=== PATIENT | female | born 1930 | race Caucasian/White ===

== ENCOUNTER 2019-01-06 09:13 | Inpatient (IN) ==
[2019-01-06] MEDS ORDERED: SODIUM CHLORIDE 0.9% 250 ML IV PRN ×2 (09:24→17:58)
[2019-01-06] MEDS ORDERED: PANTOPRAZOLE BOLUS/DRIP 1 EA IV STA (09:24)
[2019-01-06] MEDS ORDERED: PANTOprazole 80 MG in DEXTROSE 5% 100 ML IV ONE (09:24)
[2019-01-06] MEDS ORDERED: SODIUM CHLORIDE 0.9% 1000ML 1,000 ML IV SCH (09:30)
[2019-01-06 09:40] LABS: Basophils # (auto) 0.02 K/uL (0-0.2); Basophils % (auto) 0.4 %; Eosinophils # (auto) 0.09 K/uL (0-0.5); Eosinophils % (auto) 1.8 %; Hematocrit (blood only) 26.7 % (37-47); Hemoglobin 8.8 g/dL (12.0-16.0); Immature Granulocytes # (auto) 0.01 K/uL (0.00-0.02); Immature Granulocytes % (auto) 0.2 %; Lymphocytes # (auto) 1.48 K/uL (1.2-3.4); Lymphocytes % (auto) 29.4 %; Mean Corpuscular Volume 91.4 fL (80-100); Mean Platelet Volume 8.9 fL (7.4-10.4); Monocytes # (auto) 0.27 K/uL (0.11-0.59); Monocytes % (auto) 5.4 %; Neutrophils # (auto) 3.16 K/uL (1.4-6.5); Neutrophils % (auto) 62.8 %; Platelet Count 187 K/uL (130-400); RDW Coefficient of Variation 18.5 % (11.5-14.5); RDW Standard Deviation 62.6 fL (36.4-46.3); Red Blood Count 2.92 M/uL (4.2-5.4); White Blood Count 5.03 K/uL (4.8-10.8)
[2019-01-06 09:50] LABS: INR 1.1 (0.9-1.1); Partial Thromboplastin Ratio 0.9; Partial Thromboplastin Time 24.5 Seconds (21.0-31.0); Prothrombin Time 11.1 Seconds (9.0-12.0)
[2019-01-06 09:56] LABS: Alanine Aminotransferase 19 U/L (12-78); Albumin Level 2.9 gm/dl (3.4-5.0); Aspartate Aminotransferase 24 U/L (15-37); BUN Creatinine Ratio 29.9 (10-20); Blood Urea Nitrogen 43 mg/dl (7-18); Calcium 8.4 mg/dl (8.5-10.1); Carbon Dioxide 26 mmol/L (21-32); Chloride 106 mmol/L (98-107); Est GFR (African American) 37.8; Est GFR (Non-African American) 32.6; Glucose 100 mg/dl (70-99); Sodium 138 mmol/L (136-145)
[2019-01-06 09:59] LABS: Albumin Globulin Ratio 0.9 (0.9-2); Alkaline Phosphatase 61 U/L (45-117); Globulin 3.2 gm/dl (2.5-4.0); Total Protein 6.1 gm/dl (6.4-8.2)
[2019-01-06 10:04] LABS: Ovalocytes 1+
[2019-01-06] MEDS: PANTOprazole 40 MG in DEXTROSE 5% 100 ML IV SCH ×3 (10:04→19:39)
--- NOTE | 2019-01-06 11:46 | History & Physical Report ---
Date of Service January 06, 2019 Assessment & Plan (1) GI bleed: (2) Symptomatic anemia: -admit to Med Surg with tele -patient presenting from [facility] after one week ago developing a small amount of dark red blood with bowel movements to having jaxon bight red bleeding per rectum today -patient anticoagulated on Eliquis for history of atrial fibrillation, last dose this AM -in the ED, hgb 8.8 (down from 12.1 on 12/26), BPs somewhat low with systolics in the 90s -unknown history of prior EGD or colonoscopy -started on PPI drip in the ED, will continue with -serial H/H, transfuse PRN -NPO -IVF -GI consult, case discussed with Marisela Bolanos PA-C (3) AVERY (acute kidney injury): -creat 1.4 (baseline ~ 1.0) -likely prerenal due to hypovolemia from anemia -IVF, hold ACEi -follow renal functions, avoid nephrotoxic agents when able (4) AICD (automatic cardioverter/defibrillator) present: (5) Monomorphic ventricular tachycardia: (6) Nonischemic cardiomyopathy: -stable -echo 2015 - EF 50%, severely dilated left atrium, moderately dilated right atrium, severe MR, mild AR, moderate TR -holding Lasix due to AVERY -monitor volume status closely (7) Atrial fibrillation: -rhythm controlled on Tikosyn, will continue -rate controlled on metoprolol, will hold for now due to borderline hypotension -anticoagulated on Eliquis, holding for now due to GI bleed (8) HTN (hypertension): -holding enalapril and metoprolol for now due to AVERY/borderline hypotension (9) DVT prophylaxis: -SCDs for now due to GI bleed History of Present Illness Chief Complaint: Rectal bleeding Primary Care Provider: Dr. Musa 88-year-old female who presents to the ED from [facility] for evaluation of rectal bleeding. History is somewhat limited from the patient secondary to her underlying dementia. Some history was obtained from staff at [facility]. Staff reports that patient developed a small amount of blood with bowel mov ements last week. She had an appointment with her cafe helper who ordered stool for Hemoccult and CBC. Staff reports that the bleeding has been progressively getting worse. This morning, patient was complaining of dizziness and generalized weakness. She had a bowel movement of bright red blood. Patient was then sent to the ED for further evaluation. Patient denies abdominal pain, nausea, vomiting. Reports she ate very little of her breakfast this morning (this was also confirmed with staff at [facility]). No reports of chest pain or shortness of breath. No syncopal events. Patient was seen in the ED on 12/13 and diagnosed with pneumonia. She was placed on Augmentin which she has since completed. She appears to have recovered from this without incident. No reports of other recent illnesses, fevers, chills. Patient is unsure if she has had a colonoscopy or EGD in the past and is receiving most of her medical care in [place] and [place]. In the ED, patient's hemoglobin was found to be 8.8 (down from 12.1 on 12/26), creatinine 1.4 (baseline appears to be around 1.0). Systolic blood pressures are somewhat low running in the 90s. Patient was given IVF and started on a Protonix drip. Allergies Allergy/AdvReac Type Severity Reaction Status Date / Time No Known Allergies Allergy Unverified 01/06/19 09:59 Home Medications Home Medications Medication Instructions Recorded Confirmed Type acetaminophen [Tylenol] 650 mg PO Q4H PRN 12/13/18 01/06/19 History apixaban [Eliquis] 2.5 mg PO BID 12/13/18 01/06/19 History aspirin 81 mg PO QAM 12/13/18 01/06/19 History dofetilide 125 mcg PO Q12H 12/13/18 01/06/19 History enalapril maleate 2.5 mg PO QAM 12/13/18 01/06/19 History furosemide 40 mg PO QAM 12/13/18 01/06/19 History pantoprazole [Protonix] 40 mg PO QAM 12/13/18 01/06/19 History potassium chloride 10 meq PO BID 12/13/18 01/06/19 History vitamin B comp and C no.3 1 cap PO QAM 12/13/18 01/06/19 History Saccharomyces boulardii [Florastor] 250 mg PO BID 01/06/19 01/06/19 History metoprolol tartrate 25 mg PO BID 01/06/19 01/06/19 History Past Med/Surg History Medical History Monomorphic ventricular tachycardia (Chronic) GERD (gastroesophageal reflux disease) (Chronic) Nonischemic cardiomyopathy (Chronic) Atrial fibrillation (Chronic) Surgical History AICD (automatic cardioverter/defibrillator) present (Chronic) Family History Other Family history non-contributory Social History Preferred Language: Montserratian Communication Ability: Effective Manager Culinary Required: No Beliefs That Will Affect Care: Quaker Current Living Situation: Retirement Other Information That Helps Us Care for You: No Feels Safe at Home: Yes Safety Concerns: Feels Safe At This Time Smoking Status: Never smoker Hx Alcohol Use: No Hx Substance Use: No Review of Systems 10 points reviewed with patient however felt to be limited secondary to underlying dementia. Physical Exam Vital Signs (Past 24 Hours): Last Vital Signs Temp 36.6 C 01/06/19 09:12 Pulse 94 H 01/06/19 10:26 Resp 28 H 01/06/19 10:26 BP 91/59 L 01/06/19 10:26 Pulse Ox 100 01/06/19 10:26 Constitutional: + thin; no acute distress Vitals as above Eyes: PERRL, conjunctivae normal, anicteric sclerae ENMT: external ear and nose normal, oropharynx normal Respiratory: normal respiratory effort, lungs clear to auscultation Cardiovascular: Rate/Rhythm: + tachycardic; + abnormal rhythm (Irregularly irregular) Vessels: normal peripheral pulses Extremities: + edema (Trace, BLE) Gastrointestinal (Abdomen): normal bowel sounds, soft, nontender, no hepatosplenomegaly Musculoskeletal: no cyanosis or clubbing, extremities motor strength 5/5 Skin: no rashes, warm and dry Neurologic: PERRL, EOMI, accommodation nl, no face palsy, no dysarthria Psychiatric: A+Ox3, euthymic affect (Forgetful) Insight: + limited insight Results & Data Laboratory Results Laboratory Last Values WBC 5.03 K/uL (4.8-10.8) 01/06/19 09:29 RBC 2.92 M/uL (4.2-5.4) L 01/06/19 09: Hgb 8.8 g/dL (12.0-16.0) L 01/06/19 09: Hct 26.7 % (37-47) L 01/06/19 09: MCV 91.4 fL (80-100) 01/06/19 09: MCH 30.1 pg (25-34) 01/06/19: MCHC 33.0 g/dL (32-36) 01/06/19 09: RDW Std Deviation 62.6 fL (36.4-46.3) H 01/06/19: RDW Coeff of Elieser 18.5 % (11.5-14.5) H 01/06/19: Plt Count 187 K/uL (130-400) 01/06/19: MPV 8.9 fL (7.4-10.4) 01/06/19 09: Immature Gran % (Auto) 0.2 % 01/06/19 09: Neut % (Auto) 62.8 % 01/06/19 09: Lymph % (Auto) 29.4 % 01/06/19 09: [place] % (Auto) 5.4 % 01/06/19 09: Eos % (Auto) 1.8 % 01/06/19 09: Baso % (Auto) 0.4 % 01/06/19 09: Immature Gran # (Auto) 0.01 K/uL (0.00-0.02) 01/06/19: Neut # (Auto) 3.16 K/uL (1.4-6.5) 01/06/19 09: Lymph # (Auto) 1.48 K/uL (1.2-3.4) 01/06/19 09: [place] # (Auto) 0.27 K/uL (0.11-0.59) 01/06/19 09: Eos # (Auto) 0.09 K/uL (0-0.5) 01/06/19 09: Baso # (Auto) 0.02 K/uL (0-0.2) 01/06/19 09: Ovalocytes 1+ 01/06/19 09:29 PT 11.1 Seconds (9.0-12.0) 01/06/19 09:29 INR 1.1 (0.9-1.1) 01/06/19 09:29 APTT 24.5 Seconds (21.0-31.0) 01/06/19 09:29 PTT Ratio 0.9 01/06/19 09:29 Sodium 138 mmol/L (136-145) 01/06/19 09:29 Potassium 4.0 mmol/L (3.5-5.1) 01/06/19 09:29 Chloride 106 mmol/L (98-107) 01/06/19 09:29 Carbon Dioxide 26 mmol/L (21-32) 01/06/19 09:29 Anion Gap 6.0 (3-11) 01/06/19 09:29 BUN 43 mg/dl (7-18) H 01/06/19 09:29 Creatinine 1.43 mg/dl (0.6-1.2) H 01/06/19 09:29 Est Cr Clr Drug Dosing Not Reportable 01/06/19 09:29 Est GFR ( Amer) 37.8 01/06/19 09:29 Est GFR (Non-Af Amer) 32.6 01/06/19 09:29 BUN/Creatinine Ratio 29.9 (10-20) H 01/06/19 09:29 Glucose 100 mg/dl (70-99) H 01/06/19 09:29 Calcium 8.4 mg/dl (8.5-10.1) L 01/06/19 09:29 Total Bilirubin 1.0 mg/dl (0.2-1) 01/06/19 09:29 AST 24 U/L (15-37) 01/06/19 09:29 ALT 19 U/L (12-78) 01/06/19 09:29 Alkaline Phosphatase 61 U/L (45-117) 01/06/19 09:29 Total Protein 6.1 gm/dl (6.4-8.2) L 01/06/19 09:29 Albumin 2.9 gm/dl (3.4-5.0) L 01/06/19 09:29 Globulin 3.2 gm/dl (2.5-4.0) 01/06/19 09:29 Albumin/Globulin Ratio 0.9 (0.9-2) 01/06/19 09:29 POC Stool Occult Blood Positive (Negative) H 01/06/19 Unknown Blood Type O Positive 01/06/19 09:44 Antibody Screen NEGATIVE 01/06/19 09:44 Crossmatch See Detail 01/06/19 09:44 Code Status & VTE Plan Code Status Patient is a full code as per my discussion with staff at [facility]. Supervising Physician Co-Signing Physician Notes I saw this patient with the Nurse Practitioner, I participated in the history, physical, review of systems, and physical exam. I reviewed the medications with the patient and the Nurse Practioner and helped reconcile the medications. I helped take a detailed family and social history as well. I formulated the assessment and plan personally with the Nurse Practitioner and went over it with the patient. ROS-No Headache, No Visual Changes, No Nausea, No Vomiting, No Fever, No Chills, No Neck Pain or Stiffness, No Chest Pain, No Palpitations, No SOB, No PICHARDO, No Cough, No Sputum, No Wheezing, No Abdominal Pain, No Diarrhea, No Hematemesis, No Hemoptysis, No Unexpected Weight Loss, No Flank pain, No Melena, +Hematochezia, No Frequency, No Urgency, No Burning, No Hematuria, No Rashes, No Diaphoresis. Appetite is Normal Physical Exam Gen-AAO x 3, NAD, Afebrile, Cachectic, Pleasant Head-NCAT, EOMI, PERRLA, Anicteric Sclera, No Posterior Pharyngeal Erythema Neck-Supple, No JVD, No Thyromegaly, No Masses, No LAD, No Bruits Lungs-Clear to Auscultation Bilaterally, No Rales, No Rhonchi, No Wheezing, No Crepitus Chest-Irregular, Tachy, No S4, +S1, +S2, No S3, No Murmurs, No Rubs, No Gallops Abdomen-Soft, Bowel Sounds Present, Non Tender, Non Distended, No Hepatomegaly, No Splenomegaly, No Palpable Masses, No Rebound, No Rigidity, No Guarding Musculoskeletal-Full Range of Motion Bilaterally, No CVAT Extremities-No Cyanosis, No Clubbing, Trace Edema Nuero-Cranial Nerves II-XII grossly intact, Motor WNL, DTRs WNL, Strength WNL, Non Focal Psych-Normal Mood (1) GI bleed GI bleed type/associated pathology: unspecified gastrointestinal hemorrhage type Qualified Code(s): K92.2 - Gastrointestinal hemorrhage, unspecified
--- NOTE | 2019-01-06 13:17 | Gastrointestinal Consultation ---
Date of Consultation January 06, 2019 Assessment & Plan (1) GI bleed: Diverticular bleed would be most likely given there is no abdominal pain, however colon cancer, colon polyps and (less likely) ischemia would be in the differential as well. Patient's last colonoscopy was many years ago. She has had a drop in hgb, but has not had a BM since this morning, so things appear to be slowing down. Would follow the blood counts, and transfuse if Hgb falls below 8. Hold anticoagulation. BUN is elevated, but there is some acute renal failure, so difficult to assess for an upper GI bleed, however patient has no significant upper GI symptoms. Would suggest stopping the PPI drip and changing to IVPB q12hrs. If hgb continues to drop, would pursue an inpatient colonoscopy. Otherwise, would manage conservatively during admission and plan for OP colonoscopy. Present on Admission?: Yes Supervising Physician Co-Signing Physician Notes I have personally seen and examined the patient with Marisela Bolanos PA-C. Her note reflects my exam and findings. I agree with her impression and plan. Pt with mild anemia and self limited small rectal bleed possibly from outlet bleeding. No blood on most recent BM this afternoon. No indication for endoscopy at this point. Cont. to follow H/H. Ladarius Garcia M.D. History of Present Illness History of Present Illness 88 year old female with a hx of afib/on Eliquis, HTN, Vtach, s/p ACID, admitted from a local nursing facility with rectal bleeding. By report she has had an approximate 1 week+ hx of a small amount of maroon blood in the stool, progressing to jaxon red blood today. She has a hx of dementia so it is somewhat difficult to obtain an accurate history, but her daughter is at bedside and she helps with the history. Patient reports BMs about 3-4 times daily and denies any abdominal pain or upper GI symptoms. She does take pantoprazole once daily at home. Last colonoscopy was a "long time ago," per her daughter, and it is felt that it was normal. Family hx of colon cancer in her mother, who was in her 90s at the time of diagnosis. Last BM was this morning prior to coming to the ED. Patient is mildly hypotensive, with a bp of 90/55. Pulse is normal at 68. She is afebrile and in no acute distress. Blood work shows a Hgb of 8.8 today. It was 9.6 on 12/31 and 12.1 on 12/26/18. BUN is 43 with a creat of 1.43. Allergies Allergy/AdvReac Type Severity Reaction Status Date / Time No Known Allergies Allergy Unverified 01/06/19 09:59 Home Medications Home Medications Medication Instructions Recorded Confirmed Type acetaminophen [Tylenol] 650 mg PO Q4H PRN 12/13/18 01/06/19 History apixaban [Eliquis] 2.5 mg PO BID 12/13/18 01/06/19 History aspirin 81 mg PO QAM 12/13/18 01/06/19 History dofetilide 125 mcg PO Q12H 12/13/18 01/06/19 History enalapril maleate 2.5 mg PO QAM 12/13/18 01/06/19 History furosemide 40 mg PO QAM 12/13/18 01/06/19 History pantoprazole [Protonix] 40 mg PO QAM 12/13/18 01/06/19 History potassium chloride 10 meq PO BID 12/13/18 01/06/19 History vitamin B comp and C no.3 1 cap PO QAM 12/13/18 01/06/19 History Saccharomyces boulardii [Florastor] 250 mg PO BID 01/06/19 01/06/19 History metoprolol tartrate 25 mg PO BID 01/06/19 01/06/19 History Patient History Medical History Monomorphic ventricular tachycardia (Chronic) GERD (gastroesophageal reflux disease) (Chronic) Nonischemic cardiomyopathy (Chronic) Atrial fibrillation (Chronic) Surgical History AICD (automatic cardioverter/defibrillator) present (Chronic) Family History Other Family history non-contributory Social History Preferred Language: Vincentian Communication Ability: Effective Design Chief Required: No Beliefs That Will Affect Care: Islam Current Living Situation: Custodial Other Information That Helps Us Care for You: No Feels Safe at Home: Yes Safety Concerns: Feels Safe At This Time Smoking Status: Never smoker Hx Alcohol Use: No Hx Substance Use: No Review of Systems Constitutional: no fever, no chills, no fatigue and no weight loss Eyes: no eye pain and no worsening vision Ear, Nose, Mouth, Throat: + hearing loss; no ear pain, no nasal congestion and no sore throat Respiratory: no cough, no chest congestion and no wheezing Cardiovascular: no chest pain and no dyspnea Gastrointestinal: as per Subjective / HPI Genitourinary (Female): no dysuria and no urinary incontinence Musculoskeletal: no joint pain Integumentary: no rash and no pruritus Neurologic: no tingling, no numbness and no dizziness Psychiatric: no suicidal ideation and no confusion Endocrine: no cold intolerance and no heat intolerance Hematologic / Lymphatic: no easy bleeding and no easy bruising Allergy / Immunological: no problem reported Physical Exam Vital Signs (Past 24 Hours): Last Vital Signs Temp 36.6 C 01/06/19 09:12 Pulse 94 H 01/06/19 10:26 Resp 16 01/06/19 12:12 BP 95/51 L 01/06/19 12:12 Pulse Ox 100 01/06/19 12:12 Constitutional: no acute distress Eyes: + anicteric sclerae ENMT: external ear and nose normal, oropharynx normal Neck: normal visual inspection Respiratory: normal respiratory effort, lungs clear to auscultation Cardiovascular: Heart Sounds: no murmur irregular Gastrointestinal (Abdomen): normal bowel sounds, soft, nontender, no hepatosplenomegaly Musculoskeletal: Head/Neck/Chest: normocephalic and head atraumatic Skin: no rashes, warm and dry Neurologic: moves all extremities; no focal motor deficits Psychiatric: Orientation: alert and oriented x 3 Results & Data Laboratory Results Laboratory Results - last 24 hr 01/06/19 01/06/19 01/06/19 09:29 09:29 09:29 WBC 5.03 RBC 2.92 L Hgb 8.8 L Hct 26.7 L MCV 91.4 MCH 30.1 MCHC 33.0 RDW Std Deviation 62.6 H RDW Coeff of Elieser 18.5 H Plt Count 187 MPV 8.9 Immature Gran % (Auto) 0.2 Neut % (Auto) 62.8 Lymph % (Auto) 29.4 [place] % (Auto) 5.4 Eos % (Auto) 1.8 Baso % (Auto) 0.4 Immature Gran # (Auto) 0.01 Neut # (Auto) 3.16 Lymph # (Auto) 1.48 [place] # (Auto) 0.27 Eos # (Auto) 0.09 Baso # (Auto) 0.02 Ovalocytes 1+ PT 11.1 INR 1.1 APTT 24.5 PTT Ratio 0.9 Sodium 138 Potassium 4.0 Chloride 106 Carbon Dioxide 26 Anion Gap 6.0 BUN 43 H Creatinine 1.43 H Est Cr Clr Drug Dosing Not Reportable Est GFR ( Amer) 37.8 Est GFR (Non-Af Amer) 32.6 BUN/Creatinine Ratio 29.9 H Glucose 100 H Calcium 8.4 L Total Bilirubin 1.0 AST 24 ALT 19 Alkaline Phosphatase 61 Total Protein 6.1 L Albumin 2.9 L Globulin 3.2 Albumin/Globulin Ratio 0.9 POC Stool Occult Blood Blood Type Antibody Screen Crossmatch 01/06/19 01/06/19 09:44 Unknown WBC RBC Hgb Hct MCV MCH MCHC RDW Std Deviation RDW Coeff of Elieser Plt Count MPV Immature Gran % (Auto) Neut % (Auto) Lymph % (Auto) [place] % (Auto) Eos % (Auto) Baso % (Auto) Immature Gran # (Auto) Neut # (Auto) Lymph # (Auto) [place] # (Auto) Eos # (Auto) Baso # (Auto) Ovalocytes PT INR APTT PTT Ratio Sodium Potassium Chloride Carbon Dioxide Anion Gap BUN Creatinine Est Cr Clr Drug Dosing Est GFR ( Amer) Est GFR (Non-Af Amer) BUN/Creatinine Ratio Glucose Calcium Total Bilirubin AST ALT Alkaline Phosphatase Total Protein Albumin Globulin Albumin/Globulin Ratio POC Stool Occult Blood Positive H Blood Type O Positive Antibody Screen NEGATIVE Crossmatch See Detail (1) GI bleed GI bleed type/associated pathology: unspecified gastrointestinal hemorrhage type Qualified Code(s): K92.2 - Gastrointestinal hemorrhage, unspecified
[2019-01-06] MEDS ORDERED: ACETAMINOPHEN 325 MG TAB PO PRN (13:22)
[2019-01-06] MEDS: SODIUM CHLORIDE 0.9% 1000ML 1,000 ML IV SCH (15:05)
--- NOTE | 2019-01-06 15:46 | Emergency Department Note ---
Entered by Travis Reeves acting as a scribe for History of Present Illness General Chief complaint: Rectal Bleed Stated complaint: sob/rectal bleed Source: patient Mode of arrival: EMS History of Present Illness Provider complaint: hematochezia Onset (ago): day(s) (few days) Location: head Pain Consistency: + other (episode) Quality: + other (hematochezia) Associated symptoms: + denies other symptoms (abdominal pain) and + other (lightheaded); no chest pain and no nausea/vomiting The patient is an 88 year old female who presents to the Emergency Room with complaints of hematochezia that started a few days ago. The patient reports that her stool has been a "maroon" color. She also states that she has been lightheaded for the past few days as well. She denies any chest pain, abdominal pain, nausea, or vomiting. She also denies being on any blood thinners. Patient has no other complaints at this time. Home Medications Home Medications Medication Instructions Recorded Confirmed Type acetaminophen [Tylenol] 650 mg PO Q4H PRN 12/13/18 01/06/19 History apixaban [Eliquis] 2.5 mg PO BID 12/13/18 01/06/19 History aspirin 81 mg PO QAM 12/13/18 01/06/19 History dofetilide 125 mcg PO Q12H 12/13/18 01/06/19 History enalapril maleate 2.5 mg PO QAM 12/13/18 01/06/19 History furosemide 40 mg PO QAM 12/13/18 01/06/19 History pantoprazole [Protonix] 40 mg PO QAM 12/13/18 01/06/19 History potassium chloride 10 meq PO BID 12/13/18 01/06/19 History vitamin B comp and C no.3 1 cap PO QAM 12/13/18 01/06/19 History Saccharomyces boulardii [Florastor] 250 mg PO BID 01/06/19 01/06/19 History metoprolol tartrate 25 mg PO BID 01/06/19 01/06/19 History Allergies Allergy/AdvReac Type Severity Reaction Status Date / Time No Known Allergies Allergy Unverified 01/06/19 09:59 Past Med/Surg History Medical History Monomorphic ventricular tachycardia (Chronic) GERD (gastroesophageal reflux disease) (Chronic) Nonischemic cardiomyopathy (Chronic) Atrial fibrillation (Chronic) Surgical History AICD (automatic cardioverter/defibrillator) present (Chronic) Family History Other Family history non-contributory Social History Preferred Language: Irish Communication Ability: Effective Lease Analyst Required: No Beliefs That Will Affect Care: Zoroastrian Current Living Situation: Assisted Other Information That Helps Us Care for You: No Feels Safe at Home: Yes Safety Concerns: Feels Safe At This Time Smoking Status: Never smoker Hx Alcohol Use: No Hx Substance Use: No Review of Systems See HPI for pertinent positives & negatives. and A total of 10 systems reviewed and were otherwise negative Physical Exam Vital Signs Vital Signs - 24 hr 01/06/19 09:12 01/06/19 09:33 01/06/19 10:26 Temperature 36.6 C Temperature Source Oral Sepsis Recent Fever Within 48 Hours No Sepsis Action Taken by Nursing No Action Required Pulse Rate 84 Pulse Rate [Left Finger] 94 H Respiratory Rate 26 H 28 H Respiratory Effort / Characteristics Non-Labored Non-Labored Respiratory Depth Normal Normal Respiratory Pattern Blood Pressure 98/63 L Blood Pressure [Right Arm] 91/59 L Blood Pressure Mean 74 Blood Pressure Mean [Right Arm] 69 Blood Pressure Position [Right Arm] Pulse Oximetry 100 100 100 Oxygen Delivery Method Room Air Room Air Room Air 01/06/19 12:12 01/06/19 13:03 Temperature 36.6 C Temperature Source Oral Sepsis Recent Fever Within 48 Hours Sepsis Action Taken by Nursing Pulse Rate Pulse Rate [Left Finger] 68 Respiratory Rate 16 16 Respiratory Effort / Characteristics Non-Labored Non-Labored Spontaneous Respiratory Depth Normal Normal Respiratory Pattern Regular Blood Pressure Blood Pressure [Right Arm] 95/51 L 90/55 L Blood Pressure Mean Blood Pressure Mean [Right Arm] 65 66 Blood Pressure Position [Right Arm] Lying Pulse Oximetry 100 94 Oxygen Delivery Method Room Air Room Air GENERAL: Sitting up in bed, alert, disheveled, well nourished, no distress, non- toxic EYE EXAM: normal conjunctiva. PERRL and EOM's grossly intact. OROPHARYNX: no exudate, no erythema, lips, buccal mucosa, and tongue normal and mucous membranes are moist NECK: supple, no nuchal rigidity, no adenopathy, non-tender LUNGS: Clear to auscultation. Normal chest wall mechanics HEART: no murmurs, S1 normal and S2 normal ABDOMEN: abdomen soft, non-tender, normo-active bowel, sounds, no masses, no rebound or guarding. BACK: Back is symmetrical on inspection and there is no deformity, no midline tenderness, no CVA tenderness. RECTAL: Dried blood on rectum, heme positive. SKIN: no rashes and no bruising UPPER EXTREMITIES: upper extremities are grossly normal. LOWER EXTREMITIES: No pitting edema. NEURO EXAM: Normal sensorium, cranial nerves II-XII grossly intact, normal speech, no gross weakness of arms, no gross weakness of legs. Course ED COURSE: Vital signs were reviewed and showed the patient was hypotensive. The patients medical record was reviewed The above diagnostic studies were performed and reviewed. ED treatments and interventions as stated above. 0919: The patient was evaluated in room A2. A complete history and physical examination was performed. 1016: [facility] will evaluate the patient for further management. 1021: Upon reevaluation, the patient is resting comfortably. I discussed my findings with the patient and she understands and agrees with the treatment plan. Based on the patients age, coexisting illnesses, exam and lab findings the decision to treat as an inpatient was made. The patient remained stable while under my care. The patient will be evaluated for further management. Consultations [facility] Time: 10:16 Administered Medications Pantoprazole Sodium 40 mg/ (Dextrose) 100 mls @ 20 mls/hr IV Q5H RANDY Stop: 02/05/19 09:29 Last Admin: 01/06/19 15:04 Dose: 20 mls/hr Documented by: [id number] Infusion: 01/06/19 15:04 Dose: 20 mls/hr Documented by: [id number] Admin: 01/06/19 10:04 Dose: 20 mls/hr Documented by: [id number] Sodium Chloride (Nss 1000ml) 1,000 mls @ 80 mls/hr IV .[id number] RANDY Stop: 02/05/19 14:29 Last Admin: 01/06/19 15:05 Dose: 80 mls/hr Documented by: [id number] Discontinued Medications Pantoprazole Sodium (Protonix Bolus/Drip) 0 mls @ 1 mls/hr IV ONE STA Stop: 01/06/19 09:25 Last Admin: 01/06/19 10:05 Dose: Not Given Documented by: [id number] Pantoprazole Sodium 80 mg/ (Dextrose) 120 mls @ 400 mls/hr IV NOW ONE Stop: 01/06/19 09:41 Last Infusion: 01/06/19 10:07 Dose: 0 mls/hr Documented by: [id number] Admin: 01/06/19 09:49 Dose: 400 mls/hr Documented by: [id number] Sodium Chloride (Nss 1000ml) 1,000 mls @ 999 mls/hr IV .[id number] RANDY Stop: 01/06/19 10:30 Last Infusion: 01/06/19 11:36 Dose: 0 mls/hr Documented by: [id number] Admin: 01/06/19 09:49 Dose: 999 mls/hr Documented by: [id number] Medical Decision Making Differential Diagnosis Differential diagnosis: Etiologies such as diverticulosis, AVM, coagulopathy, colitis, inflammatory bowel disease, malignancy, Mariia-Winkler tear, esophagitis, peptic ulcer disease, variceal bleed, gastritis, epistaxis, fissure, hemorrhoids, aswell as others were entertained. Medical Records Attestation: I reviewed the patient's medical records. Home Medications Current Medication List: was personally reviewed by me Laboratory Data Attestation: I reviewed the patient's lab results. Result diagrams: 01/06/19 09:29 01/06/19 09:29 Lab Results 01/06/19 01/06/19 01/06/19 Range/Units 09:29 09:29 09:29 WBC 5.03 (4.8-10.8) K/uL RBC 2.92 L (4.2-5.4) M/uL Hgb 8.8 L (12.0-16.0) g/dL Hct 26.7 L (37-47) % MCV 91.4 (80-100) fL MCH 30.1 (25-34) pg MCHC 33.0 (32-36) g/dL RDW Std Deviation 62.6 H (36.4-46.3) fL RDW Coeff of Elieser 18.5 H (11.5-14.5) % Plt Count 187 (130-400) K/uL MPV 8.9 (7.4-10.4) fL Immature Gran % (Auto) 0.2 % Neut % (Auto) 62.8 % Lymph % (Auto) 29.4 % [place] % (Auto) 5.4 % Eos % (Auto) 1.8 % Baso % (Auto) 0.4 % Immature Gran # (Auto) 0.01 (0.00-0.02) K/uL Neut # (Auto) 3.16 (1.4-6.5) K/uL Lymph # (Auto) 1.48 (1.2-3.4) K/uL [place] # (Auto) 0.27 (0.11-0.59) K/uL Eos # (Auto) 0.09 (0-0.5) K/uL Baso # (Auto) 0.02 (0-0.2) K/uL Ovalocytes 1+ PT 11.1 (9.0-12.0) Seconds INR 1.1 (0.9-1.1) APTT 24.5 (21.0-31.0) Seconds PTT Ratio 0.9 Sodium 138 (136-145) mmol/L Potassium 4.0 (3.5-5.1) mmol/L Chloride 106 (98-107) mmol/L Carbon Dioxide 26 (21-32) mmol/L Anion Gap 6.0 (3-11) BUN 43 H (7-18) mg/dl Creatinine 1.43 H (0.6-1.2) mg/dl Est Cr Clr Drug Dosing Not Reportable Est GFR ( Amer) 37.8 Est GFR (Non-Af Amer) 32.6 BUN/Creatinine Ratio 29.9 H (10-20) Glucose 100 H (70-99) mg/dl Calcium 8.4 L (8.5-10.1) mg/dl Total Bilirubin 1.0 (0.2-1) mg/dl AST 24 (15-37) U/L ALT 19 (12-78) U/L Alkaline Phosphatase 61 (45-117) U/L Total Protein 6.1 L (6.4-8.2) gm/dl Albumin 2.9 L (3.4-5.0) gm/dl Globulin 3.2 (2.5-4.0) gm/dl Albumin/Globulin Ratio 0.9 (0.9-2) POC Stool Occult Blood (Negative) Blood Type Antibody Screen Crossmatch 01/06/19 01/06/19 Range/Units 09:44 Unknown WBC (4.8-10.8) K/uL RBC (4.2-5.4) M/uL Hgb (12.0-16.0) g/dL Hct (37-47) % MCV (80-100) fL MCH (25-34) pg MCHC (32-36) g/dL RDW Std Deviation (36.4-46.3) fL RDW Coeff of Elieser (11.5-14.5) % Plt Count (130-400) K/uL MPV (7.4-10.4) fL Immature Gran % (Auto) % Neut % (Auto) % Lymph % (Auto) % [place] % (Auto) % Eos % (Auto) % Baso % (Auto) % Immature Gran # (Auto) (0.00-0.02) K/uL Neut # (Auto) (1.4-6.5) K/uL Lymph # (Auto) (1.2-3.4) K/uL [place] # (Auto) (0.11-0.59) K/uL Eos # (Auto) (0-0.5) K/uL Baso # (Auto) (0-0.2) K/uL Ovalocytes PT (9.0-12.0) Seconds INR (0.9-1.1) APTT (21.0-31.0) Seconds PTT Ratio Sodium (136-145) mmol/L Potassium (3.5-5.1) mmol/L Chloride (98-107) mmol/L Carbon Dioxide (21-32) mmol/L Anion Gap (3-11) BUN (7-18) mg/dl Creatinine (0.6-1.2) mg/dl Est Cr Clr Drug Dosing Est GFR ( Amer) Est GFR (Non-Af Amer) BUN/Creatinine Ratio (10-20) Glucose (70-99) mg/dl Calcium (8.5-10.1) mg/dl Total Bilirubin (0.2-1) mg/dl AST (15-37) U/L ALT (12-78) U/L Alkaline Phosphatase (45-117) U/L Total Protein (6.4-8.2) gm/dl Albumin (3.4-5.0) gm/dl Globulin (2.5-4.0) gm/dl Albumin/Globulin Ratio (0.9-2) POC Stool Occult Blood Positive H (Negative) Blood Type O Positive Antibody Screen NEGATIVE Crossmatch See Detail ECG Data Attestation: I personally reviewed and interpreted this ECG as follows: Indication: other (rectal bleed) Rhythm: sinus rhythm (intermittent) and other (intermittently ventriculated pace) Findings: + other (T-wave flattening in lateral leads and left axis), + 1st degree AV block and + PVC Blood Pressure Blood Pressure Findings: Low blood pressure Blood Pressure Disposition: further management by hospitalist ARLEN Narrative Patient is an 80-year-old female who presents the ER with a past medical history of AICD, A. fib on Eliquis for a GI bleed. This is been present since the fifth of this month. Upon presentation to the ER blood pressures are marginal in the high 90s. Hemoglobin is 8.8 down from 12. INR is unremarkable. BMP with a creatinine of 1.4. No significant transaminitis. Rectally she was heme positive with melena. She was placed on a Protonix drip and bolus. She was typed and screened. Upon review of her chart previous blood pressures generally trend in the 90s. She was not tachycardic. She was updated bedside. She was discussed with the hospitalist and admitted for GI bleed with symptomatic anemia as her hemoglobin trended down from 12 to 8.8 on Eliquis. She was not reversed as there is no strong active bleeding and felt there is no indication for [facility] at this time. Impression & Plan GI bleed, Symptomatic anemia Discharge Plan Visit Data *Final* Discharge Date/Time: 01/06/19 12:17 Chief Complaint: Rectal Bleed Stated Complaint: sob/rectal bleed ED Provider: Liam Armenta Discharge Problem: GI bleed, Symptomatic anemia Patient Disposition: Admitted As Inpatient Discharge Instructions Interventions: ED Discharge Assessment Last Done: 01/06/19 12:17 Discharge Problem: GI bleed Qualifiers: GI bleed type/associated pathology: unspecified gastrointestinal hemorrhage type Qualified Code(s): K92.2 - Gastrointestinal hemorrhage, unspecified The scribe's documentation has been prepared under my direction and personally reviewed by me in its entirety. I confirm that the note above accurately reflects all work, treatment, procedures, and medical decision making performed by me.
[2019-01-06] MEDS ORDERED: SODIUM CHLORIDE 0.9% 1000ML 500 ML IV ONE (17:29)
[2019-01-06 17:47] LABS: Hematocrit (blood only) 24.3 % (37-47); Hemoglobin 7.9 g/dL (12.0-16.0)
[2019-01-06] MEDS: SACCHAROMYCES BOULARDII 250 MG CAP PO SCH (20:37)
[2019-01-06] MEDS: DOFETILIDE 125 MCG CAPSULE PO SCH (20:37)
[2019-01-06] MEDS: METOPROLOL TARTRATE 25 MG TAB PO SCH (20:43)
[2019-01-06 20:47] LABS: BUN Creatinine Ratio 32.8 (10-20); Calcium 7.8 mg/dl (8.5-10.1); Creatinine Clr Calc Pharmacy 28.4 ml/min; Est GFR (African American) 53.1; Est GFR (Non-African American) 45.8; Potassium 3.9 mmol/L (3.5-5.1)
--- NOTE | 2019-01-06 21:12 | Hospitalist Progress Note ---
Date of Service January 06, 2019 Subjective Telephone consent for blood transfusion obtained from patient daughter/POA, Ms. Tiffany Villanueva, in light of patient dementia history. Patient's daughter additionally requested for patient's CODE STATUS to be changed from to Full code on admission to Full code except cardioversion (Family okay with intubation to facilitate mechanical ventilation if necessary.) Will relay to AM provider. Physical Exam Vital Signs (Past 24 Hours): Last Vital Signs Temp 36.4 C L 01/06/19 20:00 Pulse 92 H 01/06/19 20:00 Resp 18 01/06/19 20:00 BP 97/57 L 01/06/19 20:00 Pulse Ox 94 01/06/19 20:00
[2019-01-06] MEDS ORDERED: POTASSIUM CHLORIDE 10 MEQ TABCR PO STA (22:21)
[2019-01-07] MEDS: PANTOprazole 40 MG in DEXTROSE 5% 100 ML IV SCH ×5 (00:33→21:05)
[2019-01-07] MEDS: SODIUM CHLORIDE 0.9% 1000ML 1,000 ML IV SCH (03:59)
[2019-01-07 05:55] LABS: Hematocrit (blood only) 28.2 % (37-47); Hemoglobin 9.4 g/dL (12.0-16.0); Mean Corpuscular Hgb Conc 33.3 g/dL (32-36); Mean Corpuscular Volume 90.7 fL (80-100); Mean Platelet Volume 9.3 fL (7.4-10.4); Platelet Count 156 K/uL (130-400); RDW Standard Deviation 56.7 fL (36.4-46.3); Red Blood Count 3.11 M/uL (4.2-5.4); White Blood Count 4.96 K/uL (4.8-10.8)
[2019-01-07 06:20] LABS: BUN Creatinine Ratio 28.1 (10-20); Calcium 7.7 mg/dl (8.5-10.1); Est GFR (African American) 56.9; Est GFR (Non-African American) 49.1; Potassium 4.2 mmol/L (3.5-5.1)
[2019-01-07] MEDS: METOPROLOL TARTRATE 25 MG TAB PO SCH ×2 (07:57→20:34)
[2019-01-07] MEDS: SACCHAROMYCES BOULARDII 250 MG CAP PO SCH ×2 (07:58→20:34)
[2019-01-07] MEDS: VITAMIN B COMPLEX TAB PO SCH (07:58)
[2019-01-07] MEDS: DOFETILIDE 125 MCG CAPSULE PO SCH ×2 (07:58→20:34)
[2019-01-07 09:31] LABS: Hematocrit (blood only) 29.6 % (37-47); Hemoglobin 9.9 g/dL (12.0-16.0)
--- NOTE | 2019-01-07 11:34 | Hospitalist Progress Note ---
Date of Service January 07, 2019 Assessment & Plan (1) GI bleed: (2) Symptomatic anemia: -patient presenting from [facility] after one week ago developing a small amount of dark red blood with bowel movements to having jaxon bight red bleeding per rectum -patient anticoagulated on Eliquis for history of atrial fibrillation, last dose 01/06 -in the ED, hgb 8.8 (down from 12.1 on 12/26), BPs somewhat low with systolics in the 90s -unknown history of prior EGD or colonoscopy -started on PPI drip in the ED, will continue -serial H/H, wasa transfused 2 units -Resume diet if no scope -IVF -GI on case (3) AVERY (acute kidney injury): -creat 1.4 on admission (baseline ~ 1.0) Cr 1.0 today -likely prerenal due to hypovolemia from anemia -IVF, hold ACEi -follow renal functions, avoid nephrotoxic agents when able (4) AICD (automatic cardioverter/defibrillator) present: 15 beat run VT Volume Electrolytes Blood (5) Monomorphic ventricular tachycardia: As above (6) Nonischemic cardiomyopathy: -stable -echo 2015 - EF 50%, severely dilated left atrium, moderately dilated right atrium, severe MR, mild AR, moderate TR -holding Lasix due to AVERY -monitor volume status closely (7) Atrial fibrillation: -rhythm controlled on Tikosyn, will continue -rate controlled on metoprolol, will hold for now due to borderline hypotension -anticoagulated on Eliquis, holding for now due to GI bleed (8) HTN (hypertension): -holding enalapril and metoprolol for now due to AVERY/borderline hypotension (9) DVT prophylaxis: -SCDs for now due to GI bleed Monitor Hb, try to DC 01/08 if able, Feed PT, PT/OT, Hold IVF Subjective Telephone consent for blood transfusion obtained from patient daughter/POA, Ms. Tiffany Rich, in light of patient dementia history. Patient's daughter additionally requested for patient's CODE STATUS to be changed from to Full code on admission to Full code except cardioversion (Family okay with intubation to facilitate mechanical ventilation if necessary.) Will relay to AM provider. Physical Exam Vital Signs (Past 24 Hours): Last Vital Signs Temp 36.7 C 01/07/19 11:25 Pulse 74 01/07/19 11:25 Resp 16 01/07/19 11:25 BP 96/61 L 01/07/19 11:25 Pulse Ox 94 01/07/19 11:25 ROS-No Headache, No Visual Changes, No Nausea, No Vomiting, No Fever, No Chills, No Neck Pain or Stiffness, No Chest Pain, No Palpitations, No SOB, No PICHARDO, No Cough, No Sputum, No Wheezing, No Abdominal Pain, No Diarrhea, No Hematemesis, No Hemoptysis, No Unexpected Weight Loss, No Flank pain, No Melena, No Hematochezia, No Frequency, No Urgency, No Burning, No Hematuria, No Rashes, No Diaphoresis. Appetite is Normal Physical Exam Gen-AAO x 3, NAD, Afebrile Head-NCAT, EOMI, PERRLA, Anicteric Sclera, No Posterior Pharyngeal Erythema Neck-Supple, No JVD, No Thyromegaly, No Masses, No LAD, No Bruits Lungs-Clear to Auscultation Bilaterally, No Rales, No Rhonchi, No Wheezing, No Crepitus Chest-No S4, +S1, +S2, No S3, No Murmurs, No Rubs, No Gallops, No Ectopy Abdomen-Soft, Bowel Sounds Present, Non Tender, Non Distended, No Hepatomegaly, No Splenomegaly, No Palpable Masses, No Rebound, No Rigidity, No Guarding Musculoskeletal-Full Range of Motion Bilaterally, No CVAT Extremities-No Cyanosis, No Clubbing, No Edema Nuero-Cranial Nerves II-XII grossly intact, Motor WNL, DTRs WNL, Strength WNL, Non Focal Psych-Normal Mood Results & Data Laboratory Results Current Diagnoses Anemia, unspecified (01/06/19) Essential (primary) hypertension (01/06/19) Other cardiomyopathies (01/06/19) Ventricular tachycardia (01/06/19) Unspecified atrial fibrillation (01/06/19) Gastrointestinal hemorrhage, unspecified (01/06/19) Acute kidney failure, unspecified (01/06/19) Presence of automatic (implantable) cardiac defibrillator (01/06/19) Allergies No Known Allergies Allergy (Unverified 01/06/19 09:59) Height/Weight/Isolation Height 5 ft 2 in Weight 49.8 kg Chemistry 01/06/19 01/06/19 01/07/19 09:29 20:18 05:17 Sodium 138 141 142 Potassium 4.0 3.9 4.2 Chloride 106 112 H 113 H Carbon Dioxide 26 22 24 Anion Gap 6.0 8.0 5.0 BUN 43 H 35 H 29 H Creatinine 1.43 H 1.08 1.02 Glucose 100 H 88 84 (1) GI bleed GI bleed type/associated pathology: unspecified gastrointestinal hemorrhage type Qualified Code(s): K92.2 - Gastrointestinal hemorrhage, unspecified
--- NOTE | 2019-01-07 11:44 | Gastroenterology Progress Note ---
Date of Service January 07, 2019 Assessment & Plan (1) GI bleed: Patient was given 2 units of blood overnight for hgb <8. Hgb is 9.9 last check. She had two small maroon BMs earlier this morning. Feeling well otherwise. Continue PPI. Will d/w attending regarding inpatient endoscopic evaluation vs continuing to monitor. Supervising Physician Co-Signing Physician Notes I have personally seen and examined the patient with Marisela Bolanos PA-C. Her note reflects my exam and findings. I agree with her impression and plan. Responded well to transfusion. Cont PPI and following H/H. Given significant co morbid disease and being high risk for any invasive procedures, we will hold off on endoscopy unless it becomes clinically expedient. Ladarius Garcia M.D. Subjective Patient feeling well. She did receive 2 units of pRBCs overnight. Denies abdominal pain, n/v, heartburn. Patient has had 2 small, maroon BMs this morning. Hgb was 9.4 this morning (prior 7.9). Repeat 9.9 at 9am. Constitutional: no fever, no chills, no fatigue and no weight loss Eyes: no eye pain and no worsening vision Ear, Nose, Mouth, Throat: no ear pain, no hearing loss, no nasal congestion and no sore throat Respiratory: no cough, no chest congestion and no wheezing Cardiovascular: no chest pain and no dyspnea Gastrointestinal: as per Subjective / HPI Genitourinary (Female): no dysuria and no urinary incontinence Musculoskeletal: no joint pain Integumentary: no rash and no pruritus Neurologic: no tingling, no numbness and no dizziness Psychiatric: no suicidal ideation and no confusion Endocrine: no cold intolerance and no heat intolerance Hematologic / Lymphatic: no easy bleeding and no easy bruising Allergy / Immunological: no problem reported Physical Exam Vital Signs (Past 24 Hours): Last Vital Signs Temp 36.7 C 01/07/19 11:25 Pulse 74 01/07/19 11:25 Resp 16 01/07/19 11:25 BP 96/61 L 01/07/19 11:25 Pulse Ox 94 01/07/19 11:25 Constitutional: no acute distress Eyes: + anicteric sclerae ENMT: external ear and nose normal, oropharynx normal Neck: normal visual inspection Respiratory: normal respiratory effort, lungs clear to auscultation Cardiovascular: Heart Sounds: no murmur irregular rhythm Gastrointestinal (Abdomen): normal bowel sounds, soft, nontender, no hepatosplenomegaly Musculoskeletal: Head/Neck/Chest: normocephalic and head atraumatic Skin: no rashes, warm and dry Neurologic: moves all extremities; no focal motor deficits Psychiatric: Orientation: alert and oriented x 3 Results & Data Laboratory Results Laboratory Results - last 24 hr 01/06/19 01/06/19 01/06/19 09:44 17:28 19:28 WBC RBC Hgb 7.9 L Hct 24.3 L MCV MCH MCHC RDW Std Deviation RDW Coeff of Elieser Plt Count MPV Sodium Potassium Chloride Carbon Dioxide Anion Gap BUN Creatinine Est Cr Clr Drug Dosing Est GFR ( Amer) Est GFR (Non-Af Amer) BUN/Creatinine Ratio Glucose Calcium Magnesium Blood Type O Positive Blood Type Recheck O Positive Antibody Screen NEGATIVE Crossmatch See Detail 01/06/19 01/07/19 01/07/19 20:18 05:17 05:17 WBC 4.96 RBC 3.11 L Hgb 9.4 L Hct 28.2 L MCV 90.7 MCH 30.2 MCHC 33.3 RDW Std Deviation 56.7 H RDW Coeff of Elieser 17.0 H Plt Count 156 MPV 9.3 Sodium 141 142 Potassium 3.9 4.2 Chloride 112 H 113 H Carbon Dioxide 22 24 Anion Gap 8.0 5.0 BUN 35 H 29 H Creatinine 1.08 1.02 Est Cr Clr Drug Dosing 28.4 30.0 Est GFR ( Amer) 53.1 56.9 Est GFR (Non-Af Amer) 45.8 49.1 BUN/Creatinine Ratio 32.8 H 28.1 H Glucose 88 84 Calcium 7.8 L 7.7 L Magnesium 2.0 Blood Type Blood Type Recheck Antibody Screen Crossmatch 01/07/19 09:07 WBC RBC Hgb 9.9 L Hct 29.6 L MCV MCH MCHC RDW Std Deviation RDW Coeff of Elieser Plt Count MPV Sodium Potassium Chloride Carbon Dioxide Anion Gap BUN Creatinine Est Cr Clr Drug Dosing Est GFR ( Amer) Est GFR (Non-Af Amer) BUN/Creatinine Ratio Glucose Calcium Magnesium Blood Type Blood Type Recheck Antibody Screen Crossmatch (1) GI bleed GI bleed type/associated pathology: unspecified gastrointestinal hemorrhage type Qualified Code(s): K92.2 - Gastrointestinal hemorrhage, unspecified
[2019-01-07 12:05] LABS: Hematocrit (blood only) 29.1 % (37-47); Hemoglobin 9.7 g/dL (12.0-16.0)
[2019-01-08 00:01] LABS: Hematocrit (blood only) 29.2 % (37-47); Hemoglobin 9.7 g/dL (12.0-16.0)
[2019-01-08] MEDS: PANTOprazole 40 MG in DEXTROSE 5% 100 ML IV SCH ×2 (01:43→06:02)
[2019-01-08 06:12] LABS: Hematocrit (blood only) 29.8 % (37-47); Hemoglobin 9.9 g/dL (12.0-16.0); Mean Corpuscular Hgb Conc 33.2 g/dL (32-36); Mean Corpuscular Volume 90.9 fL (80-100); Mean Platelet Volume 9.3 fL (7.4-10.4); Platelet Count 172 K/uL (130-400); RDW Coefficient of Variation 17.3 % (11.5-14.5); Red Blood Count 3.28 M/uL (4.2-5.4); White Blood Count 4.21 K/uL (4.8-10.8)
[2019-01-08 06:44] LABS: BUN Creatinine Ratio 17.9 (10-20); Calcium 7.7 mg/dl (8.5-10.1); Creatinine Clr Calc Pharmacy 29.7 ml/min; Est GFR (African American) 56.2; Est GFR (Non-African American) 48.5; Potassium 3.9 mmol/L (3.5-5.1)
[2019-01-08] MEDS: SACCHAROMYCES BOULARDII 250 MG CAP PO SCH ×2 (09:16→20:16)
[2019-01-08] MEDS: VITAMIN B COMPLEX TAB PO SCH (09:16)
[2019-01-08] MEDS: DOFETILIDE 125 MCG CAPSULE PO SCH ×2 (09:16→20:16)
[2019-01-08] MEDS: METOPROLOL TARTRATE 25 MG TAB PO SCH ×4 (09:16→20:15)
--- NOTE | 2019-01-08 10:30 | Gastroenterology Progress Note ---
Date of Service January 08, 2019 Assessment & Plan (1) GI bleed: Pt is a 88 y/o female w hx of Afib on Eliquis, admitted for painless rectal bleeding and anemia Hgb 8. s/p 2U PRBC transfusion on 01/06/19, and Hgb been stable since then in high 9s. She hasn't had any more evidence of rectal bleeding nor abd pain, n/v. Tolerated diet well. - Monitor H/H and transfuse prn - DC'd PPI gtt, changed Protonix 40mg PO daily - Pt would like to defer colonoscopy evaluation even in outpt setting. - GI to sign off, call if new questions/concerns arise. Supervising Physician Co-Signing Physician Notes I have personally seen and examined the patient with CIRILO Lazo. Her note reflects my exam and findings. I agree with her impression and plan. Doing well from GI perspective. H/H stable. Pt should cont on PPI as out patient. Ladarius Garcia M.D. Subjective Pt denies any BM but noted in chart 1 BM last night w/o reports of bloody stools or rectal bleeding. She denies any abd pain, n/v. Tolerating diet well. BP was 83/52, upon recheck 95/56. Physical Exam Vital Signs (Past 24 Hours): Last Vital Signs Temp 36.5 C 01/08/19 07:19 Pulse 82 01/08/19 07:19 Resp 18 01/08/19 07:19 BP 83/52 L 01/08/19 07:19 Pulse Ox 99 01/08/19 07:19 Constitutional: + thin, well groomed, cooperative and comfortable Eyes: PERRL, conjunctivae normal, anicteric sclerae ENMT: external ear and nose normal, oropharynx normal Respiratory: normal respiratory effort, lungs clear to auscultation Cardiovascular: RRR, no murmur, no edema Gastrointestinal (Abdomen): normal bowel sounds, soft, nontender, no hepatosplenomegaly Skin: no rashes, warm and dry no jaundice Neurologic: Motor/Sensory: no asterixis Psychiatric: A+Ox3, euthymic affect Lymphatic: no lymphedema (1) GI bleed GI bleed type/associated pathology: unspecified gastrointestinal hemorrhage type Qualified Code(s): K92.2 - Gastrointestinal hemorrhage, unspecified
--- NOTE | 2019-01-08 21:20 | Hospitalist Progress Note ---
Date of Service January 08, 2019 Assessment & Plan (1) GI bleed: (2) Symptomatic anemia: -patient presenting from [facility] after one week ago developing a small amount of dark red blood with bowel movements to having jaxon bight red bleeding per rectum -patient anticoagulated on Eliquis for history of atrial fibrillation, last dose 01/06 -in the ED, hgb 8.8 (down from 12.1 on 12/26), BPs somewhat low with systolics in the 90s -unknown history of prior EGD or colonoscopy -started on PPI drip in the ED, will continue - had 2 units prbc transfused - Hgb 9.9 today -Case discussed with GI and OK to resume eliquis -Will hold on aspirin for now - Continue monitor H/H (3) AVERY (acute kidney injury): -creat 1.4 on admission (baseline ~ 1.0) Cr 1.03 today -likely prerenal due to hypovolemia from anemia -follow renal functions, avoid nephrotoxic agents when able (4) AICD (automatic cardioverter/defibrillator) present: 15 beat run VT metoprolol was on hold due to low BP Metoprolol resumed Will monitor in Tele Monitor BMP (5) Monomorphic ventricular tachycardia: As above (6) Nonischemic cardiomyopathy: -stable -echo 2015 - EF 50%, severely dilated left atrium, moderately dilated right atrium, severe MR, mild AR, moderate TR -holding Lasix due to AVERY -monitor volume status closely (7) Atrial fibrillation: -rhythm controlled on Tikosyn, will continue Heart Rate increased to 144 today Metoprolol resumed Will resume Eliquis in am (8) HTN (hypertension): BP in the low side ailyn d/c enalapril (9) DVT prophylaxis: -SCDs for now due to GI bleed Will resume eliquis in am Subjective Pt was seen and examined Lying in bed with no distress She said that she has not had any BM since yesterday Denies any chest pain, palpitation and SOB Physical Exam Vital Signs (Past 24 Hours): Last Vital Signs Temp 36.7 C 01/08/19 20:00 Pulse 90 01/08/19 20:15 Resp 18 01/08/19 20:00 BP 91/55 L 01/08/19 20:15 Pulse Ox 96 01/08/19 20:00 Physical Exam: General- No acute distress Head- atraumatic Eyes- PERRL, EOMI, ENT- oropharynx clear Neck- supple, no JVD Lungs- clear to auscultation Heart- afib Abdomen- normal bowel sounds, soft, nontender Extremities- no calf tenderness Neuro- alert, oriented x 3; PERRL, EOMI; no facial palsy Skin- warm & dry (1) GI bleed GI bleed type/associated pathology: unspecified gastrointestinal hemorrhage type Qualified Code(s): K92.2 - Gastrointestinal hemorrhage, unspecified
[2019-01-09] MEDS: SACCHAROMYCES BOULARDII 250 MG CAP PO SCH (07:40)
[2019-01-09] MEDS: METOPROLOL TARTRATE 25 MG TAB PO SCH (07:40)
[2019-01-09] MEDS: DOFETILIDE 125 MCG CAPSULE PO SCH (07:41)
[2019-01-09] MEDS: VITAMIN B COMPLEX TAB PO SCH (07:41)
[2019-01-09 08:40] LABS: Hematocrit (blood only) 29.6 % (37-47); Hemoglobin 9.8 g/dL (12.0-16.0); Mean Corpuscular Hgb Conc 33.1 g/dL (32-36); Mean Corpuscular Volume 92.5 fL (80-100); Mean Platelet Volume 9.4 fL (7.4-10.4); Platelet Count 189 K/uL (130-400); RDW Coefficient of Variation 17.6 % (11.5-14.5); RDW Standard Deviation 59.1 fL (36.4-46.3); White Blood Count 5.33 K/uL (4.8-10.8)
[2019-01-09] MEDS ORDERED: PANTOprazole 40 MG TAB PO SCH (09:00)
--- NOTE | 2019-01-09 11:55 | Hospitalist Progress Note ---
Date of Service January 09, 2019 Assessment & Plan (1) GI bleed: (2) Symptomatic anemia: -patient presenting from [facility] after one week ago developing a small amount of dark red blood with bowel movements to having jaxon bight red bleeding per rectum -patient anticoagulated on Eliquis for history of atrial fibrillation, last dose 01/06 -in the ED, hgb 8.8 (down from 12.1 on 12/26), BPs somewhat low with systolics in the 90s -unknown history of prior EGD or colonoscopy -started on PPI drip in the ED, will continue - had 2 units prbc transfused - Hgb 9.8 today -Case discussed with GI and OK to resume eliquis on discharge -Will hold on aspirin for now - Continue monitor H/H (3) AVERY (acute kidney injury): -creat 1.4 on admission (baseline ~ 1.0) Cr 1.03 yesterday -likely prerenal due to hypovolemia from anemia -follow renal functions, avoid nephrotoxic agents when able (4) AICD (automatic cardioverter/defibrillator) present: Rate controlled with metoprolol Stable (5) Monomorphic ventricular tachycardia: As above (6) Nonischemic cardiomyopathy: -stable -echo 2015 - EF 50%, severely dilated left atrium, moderately dilated right atrium, severe MR, mild AR, moderate TR -holding Lasix due to AVERY -monitor volume status closely (7) Atrial fibrillation: Rhythm controlled on Tikosyn Continue Metoprolol Resumed Eliquis (8) HTN (hypertension): BP in the low side Enalapril discontinued Continue monitor BP (9) DVT prophylaxis: SCDs for now due to GI bleed Eliquis resumed Disposition Discharge today Subjective Pt was seen and examined Sitting in chair with no distress Pt said that she feels fine Denies any chest pain, palpitation, dizziness and SOB Physical Exam Vital Signs (Past 24 Hours): Last Vital Signs Temp 36.8 C 01/09/19 07:38 Pulse 87 01/09/19 07:38 Resp 18 01/09/19 07:38 BP 108/68 01/09/19 07:38 Pulse Ox 98 01/09/19 07:38 Physical Exam: General- No acute distress Head- atraumatic Eyes- PERRL, EOMI, ENT- oropharynx clear Neck- supple, no JVD Lungs- clear to auscultation Heart- regular Abdomen- normal bowel sounds, soft, nontender Extremities- no calf tenderness Neuro- alert, oriented x 3; PERRL, EOMI; no facial palsy Skin- warm & dry (1) GI bleed GI bleed type/associated pathology: unspecified gastrointestinal hemorrhage type Qualified Code(s): K92.2 - Gastrointestinal hemorrhage, unspecified
[2019-01-09] MEDS ORDERED: APIXABAN 2.5 MG TAB PO SCH (12:15)
[2019-01-09 12:28] VITALS: TEMP 98.1
[2019-01-09 15:23] VITALS: BP 89/53; PULSE 88; O2SAT 96
--- NOTE | 2019-01-10 08:11 | Discharge Summary ---
Date of Service January 15, 2019 Admission HPI Per Admitting Provider 88-year-old female who presents to the ED from [facility] for evaluation of rectal bleeding. History is somewhat limited from the patient secondary to her underlying dementia. Some history was obtained from staff at [facility]. Staff reports that patient developed a small amount of blood with bowel movements last week. She had an appointment with her electronic warfare technician who ordered stool for Hemoccult and CBC. Staff reports that the bleeding has been progressively getting worse. This morning, patient was complaining of dizziness and generalized weakness. She had a bowel movement of bright red blood. Hill daigle was then sent to the ED for further evaluation. Patient denies abdominal pain, nausea, vomiting. Reports she ate very little of her breakfast this morning (this was also confirmed with staff at [facility]). No reports of chest pain or shortness of breath. No syncopal events. Patient was seen in the ED on 12/13 and diagnosed with pneumonia. She was placed on Augmentin which she has since completed. She appears to have recovered from this without incident. No reports of other recent illnesses, fevers, chills. Patient is unsure if she has had a colonoscopy or EGD in the past and is receiving most of her medical care in [place] and [place]. In the ED, patient's hemoglobin was found to be 8.8 (down from 12.1 on 12/26), creatinine 1.4 (baseline appears to be around 1.0). Systolic blood pressures are somewhat low running in the 90s. Patient was given IVF and started on a Protonix drip. Discharge Data Consultations 01/06/19 13:22 Consult Case Management - Discharge Planning Routine Consult Gastroenterology Routine
--- NOTE | 2019-01-12 23:54 | Discharge Summary ---
Date of Service January 09, 2019 Admission HPI Per Admitting Provider 88-year-old female who presents to the ED from [facility] for evaluation of rectal bleeding. History is somewhat limited from the patient secondary to her underlying dementia. Some history was obtained from staff at [facility]. Staff reports that patient developed a small amount of blood with bowel movements last week. She had an appointment with her chocolate refining roller who ordered stool for Hemoccult and CBC. Staff reports that the bleeding has been progressively getting worse. This morning, patient was complaining of dizziness and generalized weakness. She had a bowel movement of bright red blood. Hill daigle was then sent to the ED for further evaluation. Patient denies abdominal pain, nausea, vomiting. Reports she ate very little of her breakfast this morning (this was also confirmed with staff at [facility]). No reports of chest pain or shortness of breath. No syncopal events. Patient was seen in the ED on 12/13 and diagnosed with pneumonia. She was placed on Augmentin which she has since completed. She appears to have recovered from this without incident. No reports of other recent illnesses, fevers, chills. Patient is unsure if she has had a colonoscopy or EGD in the past and is receiving most of her medical care in [place] and [place]. In the ED, patient's hemoglobin was found to be 8.8 (down from 12.1 on 12/26), creatinine 1.4 (baseline appears to be around 1.0). Systolic blood pressures are somewhat low running in the 90s. Patient was given IVF and started on a Protonix drip. Admission Exam Per Admitting Provider Constitutional: + thin; no acute distress Vitals as above Eyes: PERRL, conjunctivae normal, anicteric sclerae ENMT: external ear and nose normal, oropharynx normal Respiratory: normal respiratory effort, lungs clear to auscultation Cardiovascular Rate/Rhythm: + tachycardic; + abnormal rhythm (Irregularly irregular) Vessels: normal peripheral pulses Extremities: + edema (Trace, BLE) Gastrointestinal normal bowel sounds, soft, nontender, no hepatosplenomegaly Musculoskeletal: no cyanosis or clubbing, extremities motor strength 5/5 Skin: no rashes, warm and dry Neurologic: PERRL, EOMI, accommodation nl, no face palsy, no dysarthria Psychiatric: A+Ox3, euthymic affect (Forgetful) Insight: + limited insight Principal Diagnosis GI bleed: Symptomatic anemia: AVERY Discharge Exam General- No acute distress Head- atraumatic Eyes- PERRL, EOMI, ENT- oropharynx clear Neck- supple, no JVD Lungs- clear to auscultation Heart- regular Abdomen- normal bowel sounds, soft, nontender Extremities- no calf tenderness Neuro- alert, oriented x 3; PERRL, EOMI; no facial palsy Skin- warm & dry Discharge Data Allergies Allergy/AdvReac Type Severity Reaction Status Date / Time No Known Allergies Allergy Unverified 01/06/19 09:59 Consultations 01/06/19 13:22 Consult Case Management - Discharge Planning Routine Consult Gastroenterology Routine Hospital Course (1) GI bleed: (2) Symptomatic anemia: -patient presenting from [facility] after one week ago developing a small amount of dark red blood with bowel movements to having jaxon bight red bleeding per rectum -patient anticoagulated on Eliquis for history of atrial fibrillation, last dose 01/06 -in the ED, hgb 8.8 (down from 12.1 on 12/26), BPs somewhat low with systolics in the 90s -unknown history of prior EGD or colonoscopy -started on PPI drip in the ED, will continue - had 2 units prbc transfused - Hgb 9.8 today -Case discussed with GI and OK to resume eliquis on discharge -Will hold on aspirin for now - Continue monitor H/H (3) AVERY (acute kidney injury): -creat 1.4 on admission (baseline ~ 1.0) Cr 1.03 yesterday -likely prerenal due to hypovolemia from anemia -follow renal functions, avoid nephrotoxic agents when able (4) AICD (automatic cardioverter/defibrillator) present: Rate controlled with metoprolol Stable (5) Monomorphic ventricular tachycardia: As above (6) Nonischemic cardiomyopathy: -stable -echo 2015 - EF 50%, severely dilated left atrium, moderately dilated right atrium, severe MR, mild AR, moderate TR -holding Lasix due to AVERY -monitor volume status closely (7) Atrial fibrillation: Rhythm controlled on Tikosyn Continue Metoprolol Resumed Eliquis (8) HTN (hypertension): BP in the low side Enalapril discontinued Continue monitor BP (9) DVT prophylaxis: SCDs for now due to GI bleed Eliquis resumed Disposition Discharge today Total Time Total Time Spent Total Time Spent (In Minutes): 35 minutes Total Time Includes: Examination of the Patient, Discharge Planning, Medication Reconciliation, Communication With Other Providers and Other Discharge Plan Discharge Items Patient Disposition: Personal Long-Term Reason For Visit: GI BLEED Discharge Diagnosis: GI Bleeding Discharge Goals: Decrease discomfort, Improve disease control, Improve function and Increase independence Activity: Resume your previous activity Activity Comment: As tolerated Non-emergency contact: Primary Care Provider Call non-emergency contact if: you have any medication questions Follow-up/Referrals: MARTIN TAM [Primary Care Provider] - Diet: Heart Healthy Addtl Provider Instructions: Follow up with your primary care provider (Please call to schedule for the appointment) Follow up with gastroenterology for possible colonoscopy if bleeding reoccurs Check CBC in 1 week Hold aspirin for now, your physician will instruct you when to resume it Monitor your blood pressure (Enalapril was discontinued due to low blood pressure) Prescriptions: Continued furosemide 40 mg Tablet 40 mg PO QAM RF: 0 acetaminophen [Tylenol] 325 mg Tablet 650 mg PO Q4H PRN (Reason: Pain) RF: 0 dofetilide 125 mcg Capsule 125 mcg PO Q12H RF: 0 potassium chloride 10 mEq Tablet Extended Release 10 meq PO BID RF: 0 pantoprazole [Protonix] 40 mg Tablet,Delayed Release (Dr/Ec) 40 mg PO QAM RF: 0 vitamin B comp and C no.3 [id number] mg Capsule 1 cap PO QAM RF: 0 Eliquis 2.5 mg Tablet 2.5 mg PO BID RF: 0 Florastor 250 mg capsule 250 mg PO BID RF: 0 metoprolol tartrate 25 mg Tablet 25 mg PO BID RF: 0 Discontinued enalapril maleate 2.5 mg Tablet 2.5 mg PO QAM RF: 0 aspirin 81 mg Tablet,Chewable 81 mg PO QAM RF: 0 Stand-Alone Forms: [facility] Discharge Orders: Discharge Order (Routine); Ordered 01/09/19 Ordered By: Ivy Mercado Admission Data Admit Date/Time: 01/06/19 11:08 Attending Provider: Ivy Mercado Admit Provider: Lebron Kimble Primary Care Provider: MARTIN TAM Other Providers: Ladarius Garcia Gary Service: Telemetry Medical Other Interventions: Discharge Summary Assessment (RN) Last Done: 01/09/19 14:40 DC Date/Time DO NOT enter until pt leaves facility: 01/09/19 17:52
--- NOTE | 2019-01-14 08:12 | Coding Query ---
ANEMIA To promote full compliance with coding requirements relating to patient care, physician participation is requested in all cases of surgical coder uncertainty. Please assist us with the question(s) below: Coding Question(s): Symptomatic anemia is documented throughout the chart. Please specify the known or suspected type by placing an "X" within the parenthesis (x). If other, please document type. Examples are: ( x) Acute blood loss anemia ( ) Chronic blood loss anemia ( ) Anemia of chronic disease ( ) Aplastic anemia ( ) Anemia due to renal disease ( ) Anemia in neoplastic disease ( ) Iron deficient anemia ( ) Anemia, unspecified or other ( ) Other: (please specify) ( ) Unable to determine Thank you for your time, NAVI Valencia, ACCESS ANALYST [facility]
== END 2019-01-09 17:52 | disposition home or self-care (01) | DRG 378 ==
LOC: ED 09:13 → SUATTDRO 11:08 → 2N 11:08